=== PATIENT | male | born 1950 | race Caucasian/White ===

== ENCOUNTER 2019-03-21 17:02 | Inpatient (IN) | payer MEDICARE, MEDICAID ==
[~2019-03-21] VITALS: Ht 175.3 cm; Wt 78.5 kg
[~2019-03-21 17:02] MED LIST: AMLO10TA4 PO; ASPI-1079 PO; ATOR20TA65 PO; LISI-604 PO; METF-416 PO; OMEP20CA10 PO; TAMS-11 PO
[2019-03-21] MEDS ORDERED: CEFAZOLIN 1000MG PREMIX 50 ML IV ONE (19:00)
[2019-03-21] MEDS ORDERED: VANCOMYCIN 1 G PREMIX 200 ML IV SCH (19:00)
[2019-03-21] MEDS ORDERED: SODIUM CHLORIDE 0.9% 500 ML IV ONE (19:00)
[2019-03-21 19:18] LABS: BASOPHILS % 0.7 % (0.0-2.0); EOSINOPHILS % 1.5 % (0.0-5.0); HEMATOCRIT. 46.2 % (42.0-52.0); LYMPHOCYTES % 24.4 % (20.0-50.0); MEAN CORPUSCULAR HEMOGLOBIN 30.2 pg (28.0-32.0); MEAN CORPUSCULAR VOLUME 87.4 fL (80.0-94.0); MEAN PLATELET VOLUME 9.5 fl (7.4-10.4); MONOCYTES % 7.6 % (2.0-8.0); NEUTROPHILS % 65.8 % (40.0-76.0); PLATELET 254 x1000/uL (130-400); RED BLOOD CELL COUNT 5.29 mill/uL (4.7-6.1); RED CELL DISTRIBUTION WIDTH 14.3 % (11.6-14.6)
[2019-03-21 19:22] LABS: CHLORIDE 110 mEq/L (98-107)
[2019-03-21] MEDS ORDERED: MAGNESIUM HYDROXIDE 400MG/5ML 30ML UDC PO PRN (19:45)
[2019-03-21] MEDS ORDERED: DEXTROSE 50% WATER 50ML SYRINGE IV PRN (19:45)
[2019-03-21] MEDS ORDERED: ONDANSETRON HCL 4MG/2ML INJ IV PRN (19:45)
[2019-03-21] MEDS ORDERED: MAGNESIUM/ALUMINUM HYDROXIDE/SIMETHICONE 30ML UDC PO PRN (19:45)
[2019-03-21] MEDS ORDERED: ACETAMINOPHEN 325MG TABLET PO PRN (19:45)
[2019-03-21] MEDS ORDERED: DIPHENHYDRAMINE 50MG/ML VIAL IV PRN (19:45)
[2019-03-21 22:50] VITALS: BP 167/90
[2019-03-21] MEDS: HYDROCODONE/ACETAMINOPHEN 10/325MG TABLET PO PRN (23:42)
[2019-03-21] MEDS: LISINOPRIL 10MG TABLET PO SCH (23:42)
[2019-03-21] MEDS: AMLODIPINE 5MG TABLET PO SCH (23:43)
[2019-03-21] MEDS: BLOOD SUGAR DIAGNOSTIC STRIP TEST SCH (23:57)
[2019-03-22] VITALS: BP 155/75
[2019-03-22] MEDS: INSULIN LISPRO 100 UNITS/ML SUBCUT SCH ×5 (00:41→20:31)
[2019-03-22 04:00] VITALS: BP 163/74
[2019-03-22] MEDS: SODIUM CHLORIDE 0.9% INJ 3ML FLUSH IVF SCH ×3 (05:47→22:00)
[2019-03-22 06:11] LABS: INR 1.1; PROTHROMBIN TIME 11.3 sec (9.6-11.0)
[2019-03-22] MEDS: OMEPRAZOLE 20MG CAPSULE EXTENDED RELEASE PO SCH ×2 (06:28→20:08)
[2019-03-22] MEDS: HYDROCODONE/ACETAMINOPHEN 10/325MG TABLET PO PRN ×2 (06:30→20:11)
[2019-03-22] MEDS: BLOOD SUGAR DIAGNOSTIC STRIP TEST SCH ×4 (06:56→20:22)
[2019-03-22 08:00] VITALS: BP 154/74
[2019-03-22] MEDS: TAMSULOSIN HCL 0.4MG SR CAPSULE PO SCH (09:00)
[2019-03-22] MEDS: AMLODIPINE 5MG TABLET PO SCH ×2 (09:00→20:09)
[2019-03-22] MEDS: LISINOPRIL 10MG TABLET PO SCH ×2 (09:00→20:08)
[2019-03-22] MEDS ORDERED: DEXAMETHASONE 4MG/ML 1ML VIAL ONE (11:44)
[2019-03-22 12:00] VITALS: BP 161/79
[2019-03-22] MEDS ORDERED: LISINOPRIL 10MG TABLET PO NR (12:00)
[2019-03-22] MEDS ORDERED: AMLODIPINE 5MG TABLET PO NR (12:00)
[2019-03-22] MEDS ORDERED: POTASSIUM CHLORIDE INJ 40 MEQ in DEXT 5% WATER 500 ML IV SCH (12:00)
[2019-03-22 16:00] VITALS: BP 169/81
[2019-03-22 20:00] VITALS: BP 166/83
[2019-03-22] MEDS ORDERED: POTASSIUM CHLORIDE 20MEQ TABLET SR PO NR ×3 (20:00→22:00)
[2019-03-22] MEDS: SODIUM CHLORIDE 0.9% 1,000 ML IV SCH ×2 (20:00)
[2019-03-22] MEDS: ATORVASTATIN CALCIUM 20MG TABLET PO SCH (20:08)
[2019-03-22] MEDS ORDERED: CEFAZOLIN SODIUM 1000MG/VIAL IV SCH (22:00)
[2019-03-22] MEDS: CEFAZOLIN 1000MG PREMIX 50 ML IV SCH (23:13)
[2019-03-23] VITALS: BP 163/76
[2019-03-23 04:00] VITALS: BP 161/89
[2019-03-23] MEDS: IBUPROFEN 600MG TABLET PO PRN (04:27)
[2019-03-23] MEDS: TEMAZEPAM 15MG CAPSULE PO PRN ×2 (04:27→23:07)
[2019-03-23] MEDS: SODIUM CHLORIDE 0.9% INJ 3ML FLUSH IVF SCH ×3 (05:19→22:00)
[2019-03-23] MEDS: CEFAZOLIN 1000MG PREMIX 50 ML IV SCH ×3 (06:10→23:07)
[2019-03-23] MEDS: OMEPRAZOLE 20MG CAPSULE EXTENDED RELEASE PO SCH ×2 (06:45→20:54)
[2019-03-23] MEDS: BLOOD SUGAR DIAGNOSTIC STRIP TEST SCH ×4 (06:45→20:57)
[2019-03-23 08:00] VITALS: BP 151/80
[2019-03-23] MEDS: INSULIN LISPRO 100 UNITS/ML SUBCUT SCH ×4 (08:34→21:21)
[2019-03-23] MEDS ORDERED: POTASSIUM CHLORIDE 20MEQ TABLET SR PO NR (09:15)
[2019-03-23] MEDS: TAMSULOSIN HCL 0.4MG SR CAPSULE PO SCH (10:22)
[2019-03-23] MEDS: LISINOPRIL 10MG TABLET PO SCH ×2 (10:23→20:54)
[2019-03-23] MEDS: AMLODIPINE 5MG TABLET PO SCH ×2 (10:23→20:53)
[2019-03-23] MEDS ORDERED: POTASSIUM CHLORIDE INJ 40 MEQ in DEXT 5% WATER 500 ML IV SCH (11:00)
[2019-03-23 12:00] VITALS: BP 157/83
[2019-03-23] MEDS ORDERED: PROPOFOL 200MG/20ML VIAL IV ONE (12:53)
[2019-03-23] MEDS ORDERED: SUCCINYLCHOLINE CHLORIDE 200MG/10ML IV ONE (12:54)
[2019-03-23] MEDS ORDERED: FENTANYL CITRATE/PF 50MCG/ML 2ML VIAL ONE (12:54)
[2019-03-23] MEDS ORDERED: CEFAZOLIN SODIUM 1000MG/VIAL ONE (12:54)
[2019-03-23] MEDS ORDERED: SODIUM CHLORIDE 0.9% 10ML VIAL ONE ×2 (12:54→13:22)
[2019-03-23] MEDS ORDERED: MIDAZOLAM HCL 2 MG/2 ML VIAL ONE (12:54)
[2019-03-23] MEDS ORDERED: LIDOCAINE HCL/PF 1% 10 MG/ML 5ML VIAL ONE (12:54)
[2019-03-23] MEDS ORDERED: ROCURONIUM BROMIDE 10MG/ML VIAL 5ML IV ONE (12:59)
[2019-03-23] MEDS ORDERED: DEXAMETHASONE 4MG/ML 1ML VIAL ONE (13:22)
[2019-03-23] MEDS ORDERED: EPHEDRINE SULFATE 50MG/ML VIAL ONE (13:22)
[2019-03-23] MEDS ORDERED: ONDANSETRON HCL 4MG/2ML INJ ONE (13:30)
[2019-03-23] MEDS ORDERED: TETRACAINE 0.5% OPHTH DROPS 4ML ONE (14:17)
[2019-03-23] MEDS ORDERED: BUPIVACAINE HCL/PF 0.75% (7.5MG/ML) 10ML ONE (14:17)
[2019-03-23] MEDS ORDERED: PREDNISOLONE ACETATE 1% OPHTH DROPS 1ML ONE (14:17)
[2019-03-23] MEDS ORDERED: CIPROFLOXACIN 0.3% OPHTH SOLN 2.5ML ONE (14:17)
[2019-03-23] MEDS ORDERED: LIDOCAINE HCL 2%/EPINEPHRINE 1:100,000 20 ML VIAL INFIL ONE (14:17)
[2019-03-23] MEDS ORDERED: BALANCED SALT IRRIG SOLN 15ML ONE (14:17)
[2019-03-23] MEDS ORDERED: NEO/POLYMYX B SULF/DEXAMETH OPHTH OINT 3.5GM ONE (14:17)
[2019-03-23] MEDS ORDERED: NEOSTIGMINE METHYLSULFATE 1MG/ML 10 ML VIAL ONE (14:26)
[2019-03-23] MEDS ORDERED: GLYCOPYRROLATE 0.2 MG/ML 2ML VIAL ONE (14:26)
[2019-03-23] MEDS ORDERED: LABETALOL HCL 5MG/ML VIAL 20ML IV ONE (15:00)
[2019-03-23] MEDS ORDERED: HYDROMORPHONE HCL/PF 2MG/ML CPJ IV PRN ×2 (15:15→22:30)
[2019-03-23 16:00] VITALS: BP 124/69
[2019-03-23 20:00] VITALS: BP 145/74
[2019-03-23] MEDS: ATORVASTATIN CALCIUM 20MG TABLET PO SCH (20:54)
[2019-03-24] VITALS: BP 129/68
[2019-03-24 04:00] VITALS: BP 147/70
[2019-03-24] MEDS: SODIUM CHLORIDE 0.9% INJ 3ML FLUSH IVF SCH ×2 (06:10→13:45)
[2019-03-24] MEDS: CEFAZOLIN 1000MG PREMIX 50 ML IV SCH ×2 (06:17→15:00)
[2019-03-24] MEDS: BLOOD SUGAR DIAGNOSTIC STRIP TEST SCH ×2 (06:22→12:34)
[2019-03-24] MEDS: OMEPRAZOLE 20MG CAPSULE EXTENDED RELEASE PO SCH (06:23)
[2019-03-24] MEDS: INSULIN LISPRO 100 UNITS/ML SUBCUT SCH ×2 (06:54→12:59)
[2019-03-24 08:00] VITALS: BP 163/91
[2019-03-24] MEDS: TAMSULOSIN HCL 0.4MG SR CAPSULE PO SCH (08:47)
[2019-03-24] MEDS: IBUPROFEN 600MG TABLET PO PRN (08:50)
[2019-03-24] MEDS: LISINOPRIL 10MG TABLET PO SCH (08:51)
[2019-03-24] MEDS: AMLODIPINE 5MG TABLET PO SCH (08:51)
[2019-03-24 12:00] VITALS: BP 152/74
[2019-03-24] MEDS: SODIUM CHLORIDE 0.9% 1,000 ML IV SCH (12:06)
[2019-03-24 14:59] VITALS: BP 152/67
[2019-03-25] MEDS ORDERED: FAMOTIDINE 20MG TABLET PO SCH (09:00)
== END 2019-03-24 15:23 | disposition home or self-care (01) | DRG 114 ==
LOC: ER 17:33 → 6EST 19:07 → ENRESERV 21:13 → EDBEDREQSVC 21:17 → EDBEDREQTM 21:17
PROVIDERS: ADMIT Internal Medicine; ATTEND Internal Medicine
PROC: 08T1XZZ Resection of Left Eye, External Approach (ICD-10-PCS; principal; 2019-03-23)
DX: H44.002 Unspecified purulent endophthalmitis, left eye (principal); E87.6 Hypokalemia; I10 Essential (primary) hypertension; E78.00 Pure hypercholesterolemia, unspecified; E11.9 Type 2 diabetes mellitus without complications; N40.0 Benign prostatic hyperplasia without lower urinary tract symptoms; H40.9 Unspecified glaucoma; Z94.7 Corneal transplant status; Z90.5 Acquired absence of kidney; Z85.528 Personal history of other malignant neoplasm of kidney; Z87.442 Personal history of urinary calculi; Z79.899 Other long term (current) drug therapy; Z79.82 Long term (current) use of aspirin; Z79.84 Long term (current) use of oral hypoglycemic drugs; Z86.73 Personal history of transient ischemic attack (TIA), and cerebral infarction without residual deficits; Z90.49 Acquired absence of other specified parts of digestive tract
CPT/HCPCS: 36415; 71045; 80051; 82962; 83036; 83735; 83880; 84484; 88305; 93005; 93970; 96365; 96367; 99285; J0330; J0690; J1100; J1815; J2250; J2405; J2704; J2710; J3010; J3370; J3480; J3490; J7040; J7060